=== PATIENT | female | born 1955 | race African-American/Black ===

== ENCOUNTER 2018-06-01 14:12 | Outpatient (RCR) | payer OTHER, MEDICAID ==
[~2018-06-01] VITALS: Ht 157.5 cm; Wt 39.9 kg
[~2018-06-01 14:12] MED LIST: ADVIL CHIL100 MG/5 M GT; ALBUTEROL2.5 MG/3 M HHN; AMOXICILLI250 MG/5 M ORAL; AMOXICILLIN500 MG GT; AUGMENTIN600 MG/5 M ORAL; AZITHROMYC200 MG/5 M PO; COLACE100 MG/10 ORAL; GOLYTELY SOLU4000 ML PO; GUAIFENESIN DM118 M1 PO; ISOSOURCE GT; LEVAQUIN500 MG ORAL; LEVAQUIN750 MG ORAL; METAMUCIL1 PK1 ORAL; NORCO 10/3251 EA ORAL; PHENERGAN6.25 MG/5 ORAL; SULFAMETHOXAZO473 ML ORAL; SYNTHROID25 MCG GT
== END 2018-06-14 | disposition home or self-care (01) ==
LOC: WCC 14:12
DX: L89.154 Pressure ulcer of sacral region, stage 4 (principal); G82.21 Paraplegia, complete; M46.28 Osteomyelitis of vertebra, sacral and sacrococcygeal region; Z87.820 Personal history of traumatic brain injury; Z87.891 Personal history of nicotine dependence; Z89.422 Acquired absence of other left toe(s)
CPT/HCPCS: 11044

== ENCOUNTER 2018-06-03 09:15 | Outpatient (CLI) | payer OTHER, MEDICAID ==
--- NOTE | 2018-06-03 14:33 | Diagnostic Imaging Report ---
Indication: Reason For Exam: OSTEOMY Technique: IV administration 24.1 mCi 99 M technetium MDP. Flow, blood pool, and static images of the pelvis were obtained Comparison: Pelvic radiograph dated 05/30/2018 Findings: Exam is limited; patient is very contracted and optimal positioning difficult to achieve. Flow and blood pool images demonstrate equivocal slight increased tracer uptake at the level of the sacrococcygeal junction and possibly the distal coccyx. Static images demonstrate small focus of tracer accumulation at the sacrococcygeal junction. Impression:Subtle and equivocal increased flow and blood pool activity, very focal but definite increased uptake on static images at the level of the sacrococcygeal junction, suspicious for acute osteomyelitis
== END 2018-06-03 11:15 | disposition home or self-care (01) ==
LOC: NUM 09:15
DX: M86.8X8 Other osteomyelitis, other site (principal)
CPT/HCPCS: 78315; A4641

== ENCOUNTER 2018-06-08 16:45 | Outpatient (CLI) | payer OTHER, MEDICAID | END 2018-06-08 18:45 | disposition home or self-care (01) | LOC: WCC 16:45 | DX: E46 Unspecified protein-calorie malnutrition (principal) | CPT/HCPCS: 11044; 84134; 87070; 87181; 87205 ==

== ENCOUNTER 2018-06-15 10:39 | Outpatient (RCR) | payer OTHER, MEDICAID ==
[~2018-06-15] VITALS: Ht 157.5 cm; Wt 39.9 kg
[2018-07-07] MEDS ORDERED: Silver Nitrate Stick TOPIC ONE (12:42)
[2018-07-15] MEDS ORDERED: Silver Nitrate Stick TOPIC ONE (11:15)
== END 2018-07-15 | disposition home or self-care (01) ==
LOC: WCC 10:39
DX: L89.154 Pressure ulcer of sacral region, stage 4 (principal); G82.21 Paraplegia, complete; M46.28 Osteomyelitis of vertebra, sacral and sacrococcygeal region; Z89.422 Acquired absence of other left toe(s); Z87.820 Personal history of traumatic brain injury
CPT/HCPCS: 11043; 97605

== ENCOUNTER 2018-07-20 11:06 | Outpatient (RCR) | payer OTHER, MEDICAID | END 2018-08-14 | disposition home or self-care (01) | LOC: WCC 11:06 | DX: L89.154 Pressure ulcer of sacral region, stage 4 (principal); G82.21 Paraplegia, complete; M46.28 Osteomyelitis of vertebra, sacral and sacrococcygeal region; Z87.820 Personal history of traumatic brain injury; Z87.891 Personal history of nicotine dependence; L89.313 Pressure ulcer of right buttock, stage 3 | CPT/HCPCS: 11042; 11043; 97605 ==

== ENCOUNTER 2018-08-17 11:02 | Outpatient (RCR) | payer OTHER, MEDICAID | END 2018-09-14 | disposition home or self-care (01) | LOC: WCC 11:02 | DX: L89.154 Pressure ulcer of sacral region, stage 4 (principal); G82.21 Paraplegia, complete; M46.28 Osteomyelitis of vertebra, sacral and sacrococcygeal region; L89.313 Pressure ulcer of right buttock, stage 3; L98.491 Non-pressure chronic ulcer of skin of other sites limited to breakdown of skin; Z89.422 Acquired absence of other left toe(s); Z87.820 Personal history of traumatic brain injury | CPT/HCPCS: 11042; 11043; 97605 ==

== ENCOUNTER 2018-09-28 11:32 | Outpatient (RCR) | payer OTHER, MEDICAID ==
[~2018-09-28] VITALS: Ht 157.5 cm; Wt 39.9 kg
== END 2018-10-15 | disposition home or self-care (01) ==
LOC: WCC 11:32
DX: L89.154 Pressure ulcer of sacral region, stage 4 (principal); L89.313 Pressure ulcer of right buttock, stage 3; G82.21 Paraplegia, complete; M46.28 Osteomyelitis of vertebra, sacral and sacrococcygeal region; L98.491 Non-pressure chronic ulcer of skin of other sites limited to breakdown of skin; L89.314 Pressure ulcer of right buttock, stage 4; Z89.422 Acquired absence of other left toe(s); Z87.820 Personal history of traumatic brain injury
CPT/HCPCS: 11043; 11044; 87070; 87181; 87205; 97605

== ENCOUNTER 2018-10-26 12:39 | Outpatient (RCR) | payer OTHER, MEDICAID | END 2018-11-12 | disposition home or self-care (01) | LOC: WCC 12:39 | DX: L89.154 Pressure ulcer of sacral region, stage 4 (principal); L89.313 Pressure ulcer of right buttock, stage 3; G82.21 Paraplegia, complete; M46.28 Osteomyelitis of vertebra, sacral and sacrococcygeal region; L98.491 Non-pressure chronic ulcer of skin of other sites limited to breakdown of skin; L89.314 Pressure ulcer of right buttock, stage 4; Z89.422 Acquired absence of other left toe(s); Z87.891 Personal history of nicotine dependence; Z87.820 Personal history of traumatic brain injury | CPT/HCPCS: 11042; 11043; 11044; 97605 ==

== ENCOUNTER 2018-11-23 11:14 | Outpatient (RCR) | payer MEDICARE, MEDICAID ==
[~2018-11-23] VITALS: Ht 162.6 cm; Wt 77.1 kg
== END 2018-12-13 | disposition home or self-care (01) ==
LOC: WCC 11:14
DX: L89.154 Pressure ulcer of sacral region, stage 4 (principal); L89.313 Pressure ulcer of right buttock, stage 3; G82.21 Paraplegia, complete; M46.28 Osteomyelitis of vertebra, sacral and sacrococcygeal region; L98.491 Non-pressure chronic ulcer of skin of other sites limited to breakdown of skin; L89.314 Pressure ulcer of right buttock, stage 4; Z87.891 Personal history of nicotine dependence; Z89.422 Acquired absence of other left toe(s); Z87.820 Personal history of traumatic brain injury
CPT/HCPCS: 11042; 11043

== ENCOUNTER 2018-12-28 11:42 | Outpatient (RCR) | payer MEDICARE, MEDICAID | END 2019-01-12 | disposition home or self-care (01) | LOC: WCC 11:42 | DX: L89.154 Pressure ulcer of sacral region, stage 4 (principal); L89.313 Pressure ulcer of right buttock, stage 3; G82.21 Paraplegia, complete; M46.28 Osteomyelitis of vertebra, sacral and sacrococcygeal region; L98.491 Non-pressure chronic ulcer of skin of other sites limited to breakdown of skin; L89.314 Pressure ulcer of right buttock, stage 4; Z89.422 Acquired absence of other left toe(s); Z87.891 Personal history of nicotine dependence; Z87.820 Personal history of traumatic brain injury; G82.20 Paraplegia, unspecified | CPT/HCPCS: 11043 ==

== ENCOUNTER 2019-02-15 08:30 | Outpatient (RCR) | payer MEDICARE, MEDICAID | END 2019-03-14 | disposition home or self-care (01) | LOC: WCC 08:30 | DX: L89.154 Pressure ulcer of sacral region, stage 4 (principal); Z89.422 Acquired absence of other left toe(s); Z89.421 Acquired absence of other right toe(s); Z87.820 Personal history of traumatic brain injury; G82.20 Paraplegia, unspecified; Z79.899 Other long term (current) drug therapy | CPT/HCPCS: 11043 ==

== ENCOUNTER 2019-03-15 12:52 | Outpatient (RCR) | payer MEDICARE, MEDICAID | END 2019-04-14 | disposition home or self-care (01) | LOC: WCC 12:52 | DX: L89.154 Pressure ulcer of sacral region, stage 4 (principal); Z87.820 Personal history of traumatic brain injury; Z79.899 Other long term (current) drug therapy; G82.20 Paraplegia, unspecified; Z89.422 Acquired absence of other left toe(s) | CPT/HCPCS: 11042 ==

== ENCOUNTER 2019-04-26 11:58 | Outpatient (RCR) | payer MEDICARE, MEDICAID | END 2019-05-15 | disposition home or self-care (01) | LOC: WCC 11:58 | DX: L89.154 Pressure ulcer of sacral region, stage 4 (principal); L89.314 Pressure ulcer of right buttock, stage 4; Z89.422 Acquired absence of other left toe(s); Z89.421 Acquired absence of other right toe(s); Z87.820 Personal history of traumatic brain injury; G82.20 Paraplegia, unspecified; Z87.891 Personal history of nicotine dependence | CPT/HCPCS: G0463 ==